=== PATIENT | female | born 1995 | race Caucasian/White ===

== ENCOUNTER 2021-10-27 07:07 | Emergency (ER) | payer BC, MEDICAID ==
[~2021-10-27] VITALS: Ht 170.2 cm; Wt 55.8 kg
[2021-10-27] MEDS ORDERED: diphenhydrAMINE HCL 50 MG/ML VIAL ONE (07:11)
[2021-10-27] MEDS ORDERED: OLANZAPINE 10 MG VIAL IM ONE ×2 (07:11→07:30)
[2021-10-27] MEDS ORDERED: LORAZEPAM INJ 2 MG/ML VIAL ONE ×2 (07:12→13:59)
--- NOTE | 2021-10-27 07:15 | NUR ---
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 A/O X 1, NO SOB NOTED. PATIENT TAKEN TO ER BED 15. [employer] AT BEDSIDE. PATIENT CONNECTED TO MONITORS. WILL CONTINUE TO MONITOR.
[2021-10-27] MEDS ORDERED: LORAZEPAM INJ 2 MG/ML VIAL IM ONE (07:30)
[2021-10-27] MEDS ORDERED: diphenhydrAMINE HCL 50 MG/ML VIAL IM ONE (07:30)
--- NOTE | 2021-10-27 07:31 | NUR ---
URINE COLLECTED SENT TO LAB
--- NOTE | 2021-10-27 07:31 | NUR ---
BLOOD DRAWN SENT TO LAB
[2021-10-27 07:41] LABS: BASOPHILS # (AUTO) 0.1 K/uL (0.0-0.2); BASOPHILS % (AUTO) 0.6 % (0.0-2.0); EOSINOPHILS % (AUTO) 0.1 % (0.0-6.0); HEMATOCRIT 34 % (33-45); HEMOGLOBIN 10.6 g/dL (11.5-14.8); LYMPHOCYTES # (AUTO) 1.5 K/uL (0.8-4.8); LYMPHOCYTES % (AUTO) 11.6 % (20.0-44.0); MEAN CORPUSCULAR HGB CONC 32 g/dl (31.0-36.0); MEAN CORPUSCULAR VOLUME 84 fL (82-100); MONOCYTES # (AUTO) 1.8 K/uL (0.1-1.30); NEUTROPHILS # (AUTO) 9.5 K/uL (1.8-8.9); NEUTROPHILS % (AUTO) 73.7 % (43.0-81.0); PLATELET COUNT (AUTO) 520 K/uL (150-450); RED BLOOD CELL COUNT(AUTO) 3.97 MIL/uL (4.0-5.2); WHITE BLOOD COUNT (AUTO) 12.9 K/uL (4.3-11.0)
[2021-10-27 07:51] LABS: BILIRUBIN,URINE NEGATIVE (NEGATIVE); COLOR,URINE YELLOW (YELLOW); LEUKOCYTE ESTERASE ,URINE NEGATIVE (NEGATIVE); NITRITE, URINE NEGATIVE (NEGATIVE); PH,URINE 5.5 (5.0-8.0); PROTEIN,URINE TRACE mg/dl (NEGATIVE); UGLUCOSE NEGATIVE (NEGATIVE); UROBILINOGEN,URINE 0.2 EU/dL (0.2)
[2021-10-27 08:02] LABS: BACTERIA,URINE Rare /HPF (None Seen); SQUAMOUS EPITHELIAL CELL,UR Few /HPF (None Seen)
[2021-10-27 08:03] LABS: MUCUS,URINE Moderate /LPF (None Seen)
[2021-10-27 08:12] LABS: CALCIUM, SERUM 9.1 mg/dL (8.5-10.1); CARBON DIOXIDE 20 mmol/L (21-32); CHLORIDE 103 mmol/L (98-107); CREATININE 1.1 mg/dL (0.6-1.3); GLUCOSE 74 mg/dL (74-106); POTASSIUM 3.7 mmol/L (3.5-5.1); SODIUM SERUM 142 mmol/L (136-145); UREA NITROGEN, BLOOD 43 mg/dL (7-18)
[2021-10-27 08:18] LABS: ALANINE AMINOTRANSFERASE 39 U/L (12-78); ALKALINE PHOSPHATASE 90 U/L (46-116); ASPARTATE AMINOTRANSFERASE 32 U/L (15-37); BILIRUBIN,DIRECT 0.1 mg/dL (0.0-0.2); BILIRUBIN,TOTAL 0.5 mg/dL (0.2-1.0); TOTAL PROTEIN, SERUM 9.5 g/dL (6.4-8.2)
[2021-10-27] MEDS ORDERED: IV NS 0.9% 1,000 ML BAG IV ONE ×2 (08:30→11:30)
[2021-10-27 08:51] LABS: ALCOHOL, BLOOD < 3 mg/dL (0-0)
[2021-10-27 09:27] LABS: ACETAMINOPHEN 0 ug/ml (10-30)
--- NOTE | 2021-10-27 11:30 | NUR ---
ASSESSED PT ON BED ASLEEP EASILY AROUSABLE, NOT IN RESPIRATORY DISTRESS, V/S STABLE, KEPT RESTED AND COMFORTABLE. WILL CONTINUE TO MONITOR.
[2021-10-27] MEDS ORDERED: LORAZEPAM INJ 2 MG/ML VIAL IV ONE (14:00)
--- NOTE | 2021-10-27 19:36 | NUR ---
PT FOUND ASLEEP, DROWSY UPON AWAKENING. FOLLOWS SIMPLE COMMANDS. WILL CONTINUE TO MONITOR.
--- NOTE | 2021-10-28 04:28 | NUR ---
Patient discharged to home in stable condition. Written and verbal after care instructions given. Patient verbalizes understanding of instruction.
[2021-10-28 04:29] VITALS: BP 112/60
== END 2021-10-28 04:29 | disposition home or self-care (01) ==
LOC: ER 07:16 → EDBD 07:16 → ER 10-28 04:29
DX: F15.10 Other stimulant abuse, uncomplicated (principal); E86.0 Dehydration; Z60.2 Problems related to living alone
CPT/HCPCS: 36415; 80048; 80076; 80143; 80307; 80320; 81001; 84702; 85025; 96361; 96372 ×2; 96374; 99285; J1200; J2060 ×2; J3490; J7030; G0480